=== PATIENT | female | born 1960 | race Caucasian/White ===

== ENCOUNTER 2016-10-14 10:22 | Emergency (ER) | payer OTHER ==
[~2016-10-14] VITALS: Ht 165.1 cm; Wt 90.7 kg
[2016-10-14] MEDS ORDERED: MORPHINE SULF INJ 2 MG/ML SYRINGE 1ML ONE (11:46)
[2016-10-14] MEDS ORDERED: ONDANSETRON HCL 4 MG/2 ML VIAL ONE (11:46)
[2016-10-14] MEDS ORDERED: ONDANSETRON HCL 4 MG/2 ML VIAL IV ONE ×3 (12:00→18:15)
[2016-10-14] MEDS ORDERED: MORPHINE SULF INJ 2 MG/ML SYRINGE 1ML IV ONE ×2 (12:00→18:15)
[2016-10-14 13:03] LABS: Basophils # (auto) 0 uL; Eosinophils # (auto) 0 uL; Eosinophils % (auto) 0.1 % (0.0-7.0); Hematocrit 42.3 % (36.0-46.0); Lymphocytes # (auto) 1.2 uL; Lymphocytes % (auto) 8.6 % (10.0-50.0); Mean Corpuscular Hemoglobin 31.5 pg (28.0-32.0); Mean Corpuscular Hgb Conc. 33.1 g/dL (32.0-36.0); Mean Corpuscular Volume 95.2 fL (80.0-100.0); Mean Platelet Volume 8.4 fL (7.4-10.4); Monocytes # (auto) 0.6 uL; Monocytes % (auto) 4.4 % (0.0-12.0); Neutrophils # (auto) 11.6 uL; Neutrophils % (auto) 86.9 % (37.0-80.0); Platelet Count (auto) 248 10^3/uL (140-450); White Blood Cell 13.3 10^3/uL (4.4-10.8)
[2016-10-14 13:14] LABS: Albumin 3.8 g/dL (3.4-5.0); Bilirubin, Total 0.3 mg/dL (0.2-1.0); Calcium 8.8 mg/dL (8.5-10.1); Magnesium 2.3 mg/dL (1.6-2.6); Potassium 3.9 mmol/L (3.5-5.1); Total Protein 7.2 g/dL (6.4-8.2)
[2016-10-14] MEDS ORDERED: SODIUM CHLORIDE 0.9% 1,000 ML IVB ONE (14:01)
[2016-10-14] MEDS ORDERED: HYDR-2652 PO (14:07)
[2016-10-14] MEDS ORDERED: ASPI-231 PO (14:07)
[2016-10-14] MEDS ORDERED: CHOL20007 PO (14:07)
[2016-10-14] MEDS ORDERED: CARV25TA55 PO (14:07)
[2016-10-14] MEDS ORDERED: CHLO25TA22 PO (14:07)
[2016-10-14] MEDS ORDERED: HYDROmorphone HCL 2 MG/ML VL IV ONE (14:15)
[2016-10-14 18:00] VITALS: BP 148/72
== END 2016-10-14 18:24 | disposition short-term general hospital (02) ==
LOC: ER 10:22
DX: S72.011A Unspecified intracapsular fracture of right femur, initial encounter for closed fracture (principal); Z90.710 Acquired absence of both cervix and uterus; Z88.0 Allergy status to penicillin; W18.31XA Fall on same level due to stepping on an object, initial encounter; Y93.89 Activity, other specified; Y92.59 Other trade areas as the place of occurrence of the external cause
CPT/HCPCS: 36415; 51702; 71010; 72192; 73502; 80053; 82962; 83735; 85025; 93005; 94761; 96361; 96374; 96375; 96376; 99285; J1170; J2270; J2405; J7030